=== PATIENT | female | born 1975 | race Caucasian/White ===

== ENCOUNTER 2018-07-24 14:08 | Observation (INO) ==
[2018-07-24 15:09] LABS: Baso # (Auto) 0.1 th/mm3 (0.0-0.2); Baso % (Auto) 1.1 % (0.0-2.0); Eos # (Auto) 0.5 th/mm3 (0.0-0.4); Eos % (Auto) 6.5 % (0.0-4.0); Hemoglobin 14.2 gm/dL (11.6-15.3); Lymph # (Auto) 2.4 th/mm3 (1.0-4.8); Lymph % (Auto) 29.5 % (9.0-44.0); Mean Corpuscular HGB Conc 32.9 % (32.0-36.0); Mean Corpuscular Hemoglobin 29.3 pg (27.0-34.0); Mean Corpuscular Volume 88.8 fL (80.0-100.0); Mean Platelet Volume 8.3 fL (7.0-11.0); Mono # (Auto) 0.5 th/mm3 (0.0-0.9); Mono % (Auto) 5.9 % (0.0-8.0); Neut # (Auto) 4.7 th/mm3 (1.8-7.7); Platelet Count 299 th/mm3 (150-450); Red Blood Count 4.84 mil/mm3 (4.00-5.30); Red Cell Distribution Width 13.1 % (11.6-17.2); White Blood Count 8.3 th/mm3 (4.0-11.0)
[2018-07-24 15:17] LABS: Amphetamine Screen,Urine Neg (Neg); Barbiturate Screen,Urine Neg (Neg); Cannabinoid Screen,Urine Neg (Neg); Cocaine Screen,Urine Neg (Neg)
--- NOTE | 2018-07-24 15:18 | XR ---
EXAM DATE: 07/24/2018 3:07 PM EDT AGE/SEX: 43 years / Female INDICATIONS: Weakness. Possible TIA CLINICAL DATA: This is the patient's initial encounter. Patient reports that signs and symptoms have been present for 1 day and indicates a pain score of 0/10. MEDICAL/SURGICAL HISTORY: . TIA, high blood pressure, diabetes None. COMPARISON: No prior exams available for comparison. FINDINGS: A single AP view of the chest demonstrates the lungs to be symmetrically aerated without evidence of mass, infiltrate or effusion. The cardiomediastinal contours are unremarkable. Osseous structures a re intact. CONCLUSION: Negative examination. Electronically signed by: Sanford Dejesus MD 07/24/2018 3:17 PM EDT
[2018-07-24 15:27] LABS: Bacteria,Urine Occasional /hpf; Bilirubin,Urine Negative (Negative); Clarity,Urine Clear (Clear); Color,Urine Straw (Yellw/Straw); Glucose,Urine (UA) 500 or Greater mg/dL (Negative); Leukocyte Esterase,Urine Trace (Negative); Nitrite,Urine Negative (Negative); Specific Gravity,Urine 1.006 (1.002-1.035); Squamous Epithelial Cell,Urine <1 /hpf (0-5)
[2018-07-24 15:29] LABS: Opiate Screen,Urine Neg (Neg)
--- NOTE | 2018-07-24 15:38 | CT ---
EXAM DATE: 07/24/2018 3:33 PM EDT AGE/SEX: 43 years / Female INDICATIONS: Resolved expressive aphasia CLINICAL DATA: This is the patient's initial encounter. Patient reports that signs and symptoms have been present for 1 day and indicates a pain score of 0/10. MEDICAL/SURGICAL HISTORY: Diabetes. Hypertension. None. RADIATION DOSE: 56.35 CTDI (mGy) COMPARISON: No prior exams available for comparison. TECHNIQUE: CT of the head without contrast. Using automated exposure control and adjustment of the mA and/or kV according to patient size, radiation dose was kept as low as reasonably achievable to ob tain optimal diagnostic quality images. DICOM format image data is available electronically for revi ew and comparison. FINDINGS: Cerebrum: The ventricles are normal for age. No evidence of midline shift, mass lesion, hemorrhage or acute infarction. No extraaxial fluid collections are seen. Posterior Fossa: The cerebellum and brainstem are intact. The 4th ventricle is midline. The cerebe llopontine angle is unremarkable. Extracranial: The visualized portion of the orbits is intact. Skull: The calvaria is intact. No evidence of skull fracture. CONCLUSION: Negative CT Head non contrast. . Electronically signed by: Sanford Dejesus MD 07/24/2018 3:36 PM EDT
[2018-07-24 15:39] LABS: Alanine Aminotransferase 24 U/L (10-53); Albumin 3.4 g/dL (3.4-5.0); Anion Gap 9 meq/L (5-15); Aspartate Aminotransferase 14 U/L (15-37); Blood Urea Nitrogen 11 mg/dL (7-18); Calcium 8.8 mg/dL (8.5-10.1); Carbon Dioxide 23.3 meq/L (21.0-32.0); Chloride 108 meq/L (98-107); Glomerular Filtration Rate Greater Than 89 mL/min (>89); Glucose,Random 124 mg/dL (74-106); Potassium 3.8 meq/L (3.5-5.1); Sodium 140 meq/L (136-145)
[2018-07-24] MEDS: Sod Chloride 0.9% Inj 1,000 ML IV.CONT SCH ×2 (15:41→21:18)
[2018-07-24 15:42] LABS: Alkaline Phosphatase 61 U/L (45-117); Total Protein 6.9 g/dL (6.4-8.2)
--- NOTE | 2018-07-24 15:48 | ED ---
HPI General Chief Complaint: Weakness Stated Complaint: Weakness Time Seen by Provider: 07/24/18 14:29 Source: patient Mode of arrival: ambulatory Limitations: no limitations History of Present Illness HPI narrative: 43-year-old female arrives to the ER by EMS. She had lunch with her boss and coworkers today at [employer]. Shortly after leaving she became very confused. She describes it as "foggy". Coworkers observed difficulty speaking which the patient reports lasted less than a minute or so. Evidently she has a history of TIA with similar symptoms. Patient takes aspirin daily. Patient denies any recent illness. She has been in normal state of health up until today. No drugs or alcohol. Patient describes chest heaviness in the ED. Mild without radiation. Symptoms more or less completely resolved in the ED. MD complaint: altered mental status Onset (ago): hour(s) Related Data Home Medications Medication Instructions Recorded Confirmed aspirin [Aspir-81] 81 mg PO DAILY 07/24/18 07/24/18 cyanocobalamin (vitamin B-12) 1,000 mg PO DAILY 07/24/18 07/24/18 [Vitamin B-12] empagliflozin [Jardiance] 10 mg PO QAM 07/24/18 07/24/18 lisinopril 10 mg PO DAILY 07/24/18 07/24/18 metformin 1,000 mg PO DAILY 07/24/18 07/24/18 metformin 1,500 mg PO BID 07/24/18 07/24/18 spironolactone 25 mg PO DAILY 07/24/18 07/24/18 Allergies Allergy/AdvReac Type Severity Reaction Status Date / Time No Known Allergies Allergy Verified 07/24/18 14:53 Review of Systems ROS: all other systems reviewed are negative [facility] Medical History Medical History Anxiety (Acute) Diabetes (Acute) FH: cholecystectomy (Acute) HTN (hypertension) (Acute) High cholesterol (Acute) Sleep apnea (Acute) TIA (transient ischemic attack) (Acute) Surgical History Surgical History H/O prior ablation treatment (Acute) Social History Social History Substance History: No History of Abuse Second Hand Smoke Exposure: No Smoking Status: Never smoker How Often Do You Have a Drink Containing Alcohol: 2 to 4 times a month Recent Travel in [facility] within the Last 8 Weeks: No Recent Out of Country Travel within the Last 8 Weeks: No Immunization History Tetanus Immunization: <5 Years Hx Influenza Vaccine This Season: No Exam Narrative Exam Narrative: GENERAL: 43-year-old female pleasant well-nourished well- developed speaking full sentences SKIN: Focused skin assessment warm/dry. HEAD: Atraumatic. Normocephalic. EYES: Pupils equal and round. No scleral icterus. No injection or drainage. ENT: No nasal bleeding or discharge. Mucous membranes pink and moist. NECK: Trachea midline. No JVD. CARDIOVASCULAR: Regular rate and rhythm. No murmur appreciated. RESPIRATORY: No accessory muscle use. Clear to auscultation. Breath sounds equal bilaterally. GASTROINTESTINAL: Abdomen soft, non-tender, nondistended. Hepatic and splenic margins not palpable. MUSCULOSKELETAL: No obvious deformities. No clubbing. No cyanosis. No edema. NEUROLOGICAL: A and O 3. Cranial nerves III through XII are normal. Speech memory mentation normal. Motor function normal times all 4 extremities. PSYCHIATRIC: Appropriate mood and affect; insight and judgment normal. Course Initial Documented Vital Signs Temperature 99 F 07/24/18 14:10 Pulse Rate 84 07/24/18 14:10 Respiratory Rate 18 07/24/18 14:10 Blood Pressure 132/84 07/24/18 14:10 Pulse Oximetry 95 07/24/18 14:10 Last Documented Vital Signs Temperature 99 F 07/24/18 14:10 Pulse Rate 75 07/24/18 14:49 Respiratory Rate 15 07/24/18 14:49 Blood Pressure 166/69 H 07/24/18 14:49 Pulse Oximetry 96 07/24/18 14:49 Medical Decision Making MDM Narrative Medical decision making narrative: Patient arrives with symptoms concerning for TIA. Patient will be admitted for TIA protocol. d/w Dr Kaufman. Medical Screen Exam Complete: Yes Emergency Medical Condition: Yes Lab Data Lab results reviewed: Yes I reviewed the patient's lab results. Lab results narrative: Blood work is grossly unremarkable. Result diagrams: 07/24/18 14:40 07/24/18 14:40 Lab Results 07/24/18 07/24/18 07/24/18 Range/Units 14:22 14:22 14:40 WBC 8.3 (4.0-11.0) th/mm3 RBC 4.84 (4.00-5.30) mil/mm3 Hgb 14.2 (11.6-15.3) gm/dL Hct 43.0 (35.0-46.0) % MCV 88.8 (80.0-100.0) fL MCH 29.3 (27.0-34.0) pg MCHC 32.9 (32.0-36.0) % RDW 13.1 (11.6-17.2) % Plt Count 299 (150-450) th/mm3 MPV 8.3 (7.0-11.0) fL Neut % (Auto) 57.0 (16.0-70.0) % Lymph % (Auto) 29.5 (9.0-44.0) % [place] % (Auto) 5.9 (0.0-8.0) % Eos % (Auto) 6.5 H (0.0-4.0) % Baso % (Auto) 1.1 (0.0-2.0) % Neut # (Auto) 4.7 (1.8-7.7) th/mm3 Lymph # (Auto) 2.4 (1.0-4.8) th/mm3 [place] # (Auto) 0.5 (0.0-0.9) th/mm3 Eos # (Auto) 0.5 H (0.0-0.4) th/mm3 Baso # (Auto) 0.1 (0.0-0.2) th/mm3 WBC Differential . Differential Comment Auto diff final Sodium (136-145) meq/L Potassium (3.5-5.1) meq/L Chloride (98-107) meq/L Carbon Dioxide (21.0-32.0) meq/L Anion Gap (5-15) meq/L BUN (7-18) mg/dL Creatinine (0.50-1.00) mg/dL Estimated GFR (>89) mL/min POC Glucose (68-110) mg/dl Random Glucose (74-106) mg/dL Calcium (8.5-10.1) mg/dL Total Bilirubin (0.2-1.0) mg/dL AST (15-37) U/L ALT (10-53) U/L Alkaline Phosphatase (45-117) U/L Troponin I (0.02-0.05) ng/mL Total Protein (6.4-8.2) g/dL Albumin (3.4-5.0) g/dL Urine Color Straw (Yellw/Straw) Urine Clarity Clear (Clear) Urine pH 5.0 (5.0-8.5) Ur Specific [place] 1.006 (1.002-1.035) Urine Protein Negative (Neg-Trace) mg/dL Urine Glucose (UA) 500 or greater (Negative) mg/dL Urine Ketones Negative (Negative) mg/dL Urine Occult Blood Small H (Negative) Urine Nitrate Negative (Negative) Urine Bilirubin Negative (Negative) Urine Urobilinogen Less than 2 (Less than 2) mg/dL Ur Leukocyte Esterase Trace H (Negative) Urine RBC 1 (0-3) /hpf Urine WBC 3 (0-5) /hpf Ur Squamous Epith Cells <1 (0-5) /hpf Urine Bacteria Occasional H (None) /hpf Micro UA Comment Culture not ind Ur Microscopic Review Not Reportable Urine Culture Comments Culture not ind Urine Opiates Screen Neg (Neg) Ur Barbiturates Screen Neg (Neg) Ur Amphetamines Screen Neg (Neg) U Benzodiazepines Scrn Neg (Neg) Urine Cocaine Screen Neg (Neg) U Cannabinoids Screen Neg (Neg) Serum Alcohol (0-5) mg/dL 07/24/18 07/24/18 Range/Units 14:40 14:48 WBC (4.0-11.0) th/mm3 RBC (4.00-5.30) mil/mm3 Hgb (11.6-15.3) gm/dL Hct (35.0-46.0) % MCV (80.0-100.0) fL MCH (27.0-34.0) pg MCHC (32.0-36.0) % RDW (11.6-17.2) % Plt Count (150-450) th/mm3 MPV (7.0-11.0) fL Neut % (Auto) (16.0-70.0) % Lymph % (Auto) (9.0-44.0) % [place] % (Auto) (0.0-8.0) % Eos % (Auto) (0.0-4.0) % Baso % (Auto) (0.0-2.0) % Neut # (Auto) (1.8-7.7) th/mm3 Lymph # (Auto) (1.0-4.8) th/mm3 [place] # (Auto) (0.0-0.9) th/mm3 Eos # (Auto) (0.0-0.4) th/mm3 Baso # (Auto) (0.0-0.2) th/mm3 WBC Differential Differential Comment Sodium 140 (136-145) meq/L Potassium 3.8 (3.5-5.1) meq/L Chloride 108 H (98-107) meq/L Carbon Dioxide 23.3 (21.0-32.0) meq/L Anion Gap 9 (5-15) meq/L BUN 11 (7-18) mg/dL Creatinine 0.69 (0.50-1.00) mg/dL Estimated GFR Greater than 89 (>89) mL/min POC Glucose 123 H (68-110) mg/dl Random Glucose 124 H (74-106) mg/dL Calcium 8.8 (8.5-10.1) mg/dL Total Bilirubin 0.3 (0.2-1.0) mg/dL AST 14 L (15-37) U/L ALT 24 (10-53) U/L Alkaline Phosphatase 61 (45-117) U/L Troponin I Less than 0.02 L (0.02-0.05) ng/mL Total Protein 6.9 (6.4-8.2) g/dL Albumin 3.4 (3.4-5.0) g/dL Urine Color (Yellw/Straw) Urine Clarity (Clear) Urine pH (5.0-8.5) Ur Specific [place] (1.002-1.035) Urine Protein (Neg-Trace) mg/dL Urine Glucose (UA) (Negative) mg/dL Urine Ketones (Negative) mg/dL Urine Occult Blood (Negative) Urine Nitrate (Negative) Urine Bilirubin (Negative) Urine Urobilinogen (Less than 2) mg/dL Ur Leukocyte Esterase (Negative) Urine RBC (0-3) /hpf Urine WBC (0-5) /hpf Ur Squamous Epith Cells (0-5) /hpf Urine Bacteria (None) /hpf Micro UA Comment Ur Microscopic Review Urine Culture Comments Urine Opiates Screen (Neg) Ur Barbiturates Screen (Neg) Ur Amphetamines Screen (Neg) U Benzodiazepines Scrn (Neg) Urine Cocaine Screen (Neg) U Cannabinoids Screen (Neg) Serum Alcohol Less than 3 (0-5) mg/dL Imaging Data Attestation: I personally reviewed and interpreted this imaging study as follows : Radiologist's impression: Chest X-Ray 07/24/18 14:31 CONCLUSION: Negative examination. Head CT 07/24/18 14:31 CONCLUSION: Negative CT Head non contrast. . Discharge Plan Discharge Disposition Patient Disposition: 30 Still Patient Physicians Team ED Provider: Akash Brewster Primary Care Provider: UNKNOWN, Attending Provider: Ruben Kaufman Other Providers: Bridgett Norman ; Sb Cooley Status ED Status: Admitted Observation Patient
[2018-07-24] MEDS ORDERED: Acetaminophen 325 MG Tablet PO ONE (17:13)
[2018-07-24] MEDS ORDERED: Bisacodyl 10 MG Supp RECTAL PRN (17:53)
--- NOTE | 2018-07-24 18:51 | P.HP ---
History of Present Illness Service: Hospitalist Primary Care Physician: UNKNOWN Chief Complaint: Thinks she had a TIA History of Present Illness: Patient is a 43-year-old female with a past medical history of anxiety , diabetes, hypertension, hyperlipidemia, sleep apnea, and PCOS. She was brought to the emergency room by EMS after experiencing an episode of confusion and "fogginess" while leaving a local restaurant after lunch. She was observed to have difficulty speaking and to be garbling her words. She was also stumbling and bumped up against the wall several times. Reports that the episode lasted about a minute or so after which she was extremely fatigued. No loss of consciousness. No fall or head injury reported. She has not recently been sick or traveled. No history of drug or alcohol abuse. She does report a history of a previous TIA several years ago that was thought to have been provoked by control pills. She was on the control pills to control symptoms of PCOS. After that incident her LUMBER CUTTER changed her to Mirena IUD. She does have a family history that is significant for stroke including her mother. Patient has never seen a salad counter attendant. She does follow with cardiology. At one time she had intermittent dysrhythmias however this resolved when she started wearing a CPAP mask. She has had no cardiac interventions. She takes daily ASA aspirin for anticoagulation; has not had any other anticoagulation. Diabetes is moderately well controlled-her last known A1c was 7.1. She has been dieting and has recently lost over 40 pounds in an effort to improve her health. Denies drug, EtOH use or smoking. Patient is seen lying on stretcher in emergency room. Her is at bedside. Patient tells me that she has no lingering confusion or fogginess. She still is somewhat tired. Feels that her strength has returned to normal. Denies any single-sided weakness or facial droop during incident. No chest pain or shortness of breath. No nausea vomiting or diarrhea. No fever or chills. - Diagnosis (1) TIA (transient ischemic attack) Review of Systems All other systems reviewed negative except as stated in HPI [facility] - History History Provided By: Patient, Significant Other, Medical Record - Medical History Medical History: Medical History (Last Reviewed 07/24/18 @ 18:31 by TAE Jenkins) Anxiety Diabetes FH: cholecystectomy HTN (hypertension) High cholesterol Sleep apnea TIA (transient ischemic attack) - Surgical History Surgical History: Surgical History (Last Reviewed 07/24/18 @ 18:31 by TAE Jenkins) H/O prior ablation treatment - Family History Family History: Family History (Last Updated 07/24/18 @ 18:31 by TAE Jenkins) Mother Stroke - Social History I have reviewed the patient's Social History: Yes - Tobacco History Second Hand Smoke Exposure: No Tobacco Use In Past 30 Days: No Smoking Status: Never smoker - Alcohol History How Often Do You Have a Drink Containing Alcohol: 2 to 4 times a month - Substance Use History Substance History: No History of Abuse - Travel History Recent Travel in the [place] Within the Last 8 Weeks: No Recent Travel Out of the Country Within the Last 8 Weeks: No - Immunization History Tetanus Immunization: <5 Years Hx Influenza Vaccine This Season: No Medications and Allergies Active Medications: Active Medications Al Hydroxide/Mg Hydroxide (Milk Of Magnesia Liq) 30 ml PO Q12H PRN PRN Reason: Mild Constipation Bisacodyl (Dulcolax Supp) 10 mg RECTAL DAILY PRN PRN Reason: SEVERE CONSITIPATION Sodium Chloride (Ns Inj) 1,000 mls @ 125 mls/hr IV.CONT .Q8H ONUR Last Admin: 07/24/18 15:41 Dose: 125 mls/hr Lactulose (Lactulose Liq) 30 ml PO DAILY PRN PRN Reason: SEVERE CONSITIPATION Senna/Docusate Sodium (Fabby-Colace) 1 tab PO BID ONUR Sennosides (Senokot) 17.2 mg PO Q12H PRN PRN Reason: Moderate Constipation Sodium Chloride (Ns Flush) 2 ml IV.FLUSH PRN PRN PRN Reason: FLUSH AFTER USING IV ACCESS Last Admin: 07/24/18 15:42 Dose: 2 ml Allergies Allergy/AdvReac Type Severity Reaction Status Date / Time No Known Allergies Allergy Verified 07/24/18 14:53 Home Medications Medication Instructions Recorded Confirmed Type aspirin [Aspir-81] 81 mg PO DAILY 07/24/18 07/24/18 History cyanocobalamin (vitamin B-12) 1,000 mg PO DAILY 07/24/18 07/24/18 History [Vitamin B-12] empagliflozin [Jardiance] 10 mg PO QAM 07/24/18 07/24/18 History lisinopril 10 mg PO DAILY 07/24/18 07/24/18 History metformin 1,000 mg PO DAILY 07/24/18 07/24/18 History metformin 1,500 mg PO BID 07/24/18 07/24/18 History spironolactone 25 mg PO DAILY 07/24/18 07/24/18 History Exam Vital signs: Vital Signs 07/24/18 14:10 07/24/18 14:31 07/24/18 14:35 Temperature 99 F Pulse Rate 84 Respiratory Rate 18 Blood Pressure 132/84 Pulse Oximetry 95 96 95 07/24/18 14:49 Temperature Pulse Rate 75 Respiratory Rate 15 Blood Pressure 166/69 H Pulse Oximetry 96 Intake & Output 07/23/18 07/24/18 07/24/18 18:59 06:59 18:59 Weight 90.718 kg Narrative: GENERAL: Well-nourished, well-developed adult female in no obvious distress. SKIN: Warm and dry. HEAD: Atraumatic. Normocephalic. CARDIOVASCULAR: Regular rate and rhythm. RESPIRATORY: No accessory muscle use. Clear to auscultation. Breath sounds equal bilaterally. GASTROINTESTINAL: Abdomen soft, non-tender, non-distended. Positive bowel sounds. MUSCULOSKELETAL: Extremities without clubbing, cyanosis, or edema. No obvious deformities. NEUROLOGICAL: Awake and alert. No obvious cranial nerve deficits. Moves all limbs equally. motor grossly within normal limits. Normal speech. PSYCHIATRIC: Appropriate mood and affect; insight and judgment good. Results - Labs CBC & Chem 7: 07/24/18 14:40 07/24/18 14:40 Labs: Laboratory Results - last 24 hr 07/24/18 07/24/18 07/24/18 14:22 14:22 14:40 WBC 8.3 RBC 4.84 Hgb 14.2 Hct 43.0 MCV 88.8 MCH 29.3 MCHC 32.9 RDW 13.1 Plt Count 299 MPV 8.3 Neut % (Auto) 57.0 Lymph % (Auto) 29.5 [place] % (Auto) 5.9 Eos % (Auto) 6.5 H Baso % (Auto) 1.1 Neut # (Auto) 4.7 Lymph # (Auto) 2.4 [place] # (Auto) 0.5 Eos # (Auto) 0.5 H Baso # (Auto) 0.1 WBC Differential . Differential Comment Auto diff final Sodium Potassium Chloride Carbon Dioxide Anion Gap BUN Creatinine Estimated GFR POC Glucose Random Glucose Calcium Total Bilirubin AST ALT Alkaline Phosphatase Troponin I Total Protein Albumin Urine Color Straw Urine Clarity Clear Urine pH 5.0 Ur Specific [place] 1.006 Urine Protein Negative Urine Glucose (UA) 500 or greater Urine Ketones Negative Urine Occult Blood Small H Urine Nitrate Negative Urine Bilirubin Negative Urine Urobilinogen Less than 2 Ur Leukocyte Esterase Trace H Urine RBC 1 Urine WBC 3 Ur Squamous Epith Cells <1 Urine Bacteria Occasional H Micro UA Comment Culture not ind Ur Microscopic Review Not Reportable Urine Culture Comments Culture not ind Urine Opiates Screen Neg Ur Barbiturates Screen Neg Ur Amphetamines Screen Neg U Benzodiazepines Scrn Neg Urine Cocaine Screen Neg U Cannabinoids Screen Neg Serum Alcohol 07/24/18 07/24/18 14:40 14:48 WBC RBC Hgb Hct MCV MCH MCHC RDW Plt Count MPV Neut % (Auto) Lymph % (Auto) [place] % (Auto) Eos % (Auto) Baso % (Auto) Neut # (Auto) Lymph # (Auto) [place] # (Auto) Eos # (Auto) Baso # (Auto) WBC Differential Differential Comment Sodium 140 Potassium 3.8 Chloride 108 H Carbon Dioxide 23.3 Anion Gap 9 BUN 11 Creatinine 0.69 Estimated GFR Greater than 89 POC Glucose 123 H Random Glucose 124 H Calcium 8.8 Total Bilirubin 0.3 AST 14 L ALT 24 Alkaline Phosphatase 61 Troponin I Less than 0.02 L Total Protein 6.9 Albumin 3.4 Urine Color Urine Clarity Urine pH Ur Specific [place] Urine Protein Urine Glucose (UA) Urine Ketones Urine Occult Blood Urine Nitrate Urine Bilirubin Urine Urobilinogen Ur Leukocyte Esterase Urine RBC Urine WBC Ur Squamous Epith Cells Urine Bacteria Micro UA Comment Ur Microscopic Review Urine Culture Comments Urine Opiates Screen Ur Barbiturates Screen Ur Amphetamines Screen U Benzodiazepines Scrn Urine Cocaine Screen U Cannabinoids Screen Serum Alcohol Less than 3 - Imaging Impressions Chest X-Ray 07/24/18 14:31 CONCLUSION: Negative examination. Head CT 07/24/18 14:31 CONCLUSION: Negative CT Head non contrast. . Caprini VTE Risk Assessment Caprini VTE Risk Assessment: Moderate/High Risk (score >= 2) Caprini Risk Assessment Model: Point Value = 1 Point Value = 2 Point Value = 3 Point Value = 5 Age 41-60 Minor surgery BMI > 25 kg/m2 Swollen legs Varicose veins or History of unexplained or recurrent spontaneous Oral contraceptives or hormone replacement Sepsis (< 1 month) Serious lung disease, including pneumonia (< 1 month) Abnormal pulmonary function Acute myocardial infarction Congestive heart failure (< 1 month) History of inflammatory bowel disease Medical patient at bed rest Age 61-74 Arthroscopic surgery Major open surgery (> 45 min) Laparoscopic surgery (> 45 min) Malignancy Confined to bed (> 72 hours) Immobilizing plaster cast Central venous access Age >= 75 History of VTE Family history of VTE Factor V Leiden Prothrombin [id number] Lupus anticoagulant Anticardiolipin antibodies Elevated serum homocysteine Heparin-induced thrombocytopenia Other congenital or acquired thrombophilia Stroke (< 1 month) Elective arthroplasty Hip, pelvis, or leg fracture Acute spinal cord injury (< 1 month) Prophylaxis Regimen: Total Risk Factor Score Risk Level Prophylaxis Regimen 0-1 Low Early ambulation 2 Moderate Order ONE of the following: *Sequential Compression Device (SCD) *Heparin 5000 units SQ BID 3-4 Higher Order ONE of the following medications: *Heparin 5000 units SQ TID *Enoxaparin/Lovenox 40 mg SQ daily (WT < 150 kg, CrCl > 30 mL/min) *Enoxaparin/Lovenox 30 mg SQ daily (WT < 150 kg, CrCl > 10-29 mL/min) *Enoxaparin/Lovenox 30 mg SQ BID (WT < 150 kg, CrCl > 30 mL/min) AND/OR *Sequential Compression Device (SCD) 5 or more Highest Order ONE of the following medications: *Heparin 5000 units SQ TID (Preferred with Epidurals) *Enoxaparin/Lovenox 40 mg SQ daily (WT < 150 kg, CrCl > 30 mL/min) *Enoxaparin/Lovenox 30 mg SQ daily (WT < 150 kg, CrCl > 10-29 mL/min) *Enoxaparin/Lovenox 30 mg SQ BID (WT < 150 kg, CrCl > 30 mL/min) AND *Sequential Compression Device (SCD) Assessment and Plan - Assessment (1) TIA (transient ischemic attack) Code(s): G45.9 - Transient cerebral ischemic attack, unspecified Status: Acute - Plan Patient is a 43-year-old female with a past medical history of anxiety , diabetes, hypertension, hyperlipidemia, sleep apnea, and PCOS. She was brought to the emergency room by EMS after experiencing an episode of confusion and "fogginess" while leaving a local restaurant after lunch. TIA vs ? -Appears to be back at baseline neurologically -Head CT negative 07/24 -Will evaluate carotids and echo -Neurology consult; appreciate assistance -Hematology consult; appreciate assistance Hypertension -Restart home lisinopril Diabetes -Home jardiance not on formulary -We will cover with sliding scale while in hospital PCOS -Continue Spironolactone and Metformin DVT prophylaxis: SCDs Discussed with: Patient, , nurse, Dr. Weaver Discharge planning: likely home
[2018-07-24 19:21] LABS: Chol/HDL Ratio 4.46 Ratio; HDL Cholesterol 31.8 mg/dL (40.0-60.0)
--- NOTE | 2018-07-24 20:44 | MB ---
cc: Bridgett Norman MD DATE: 07/24/2018 CHIEF COMPLAINT: 1. History of TIA. 2. Likely current TIA. 3. Consideration of hypercoagulable workup. HISTORY OF PRESENT ILLNESS: Ms. Jefferson is a 43-year-old lady with a history of obesity, diabetes, hypertension, sleep apnea, arrhythmia and polycystic ovarian syndrome, who presented to the hospital with a sudden onset of loss of balance, slurred speech and abnormal speech. She reported difficulty speaking and gargling of words. She reports that she has a history of a previous TIA where she was hospitalized at [facility] in [place]. She reported at that time, she lost strength and sensation on one side of her body and also had difficulty with speaking. She reports that at point in time, she was diagnosed with an arrhythmia for which she follows with a current financial services auditor. She is uncertain of the type of arrhythmia. She takes a baby aspirin daily. She was told that the stroke may have been provoked by control pills as well and she is no longer on estrogen-containing control pills. She is currently on the Mirena IUD. Head CT in the emergency room was negative. Chest x-ray obtained and was also negative. REVIEW OF SYSTEMS: As above in the HPI, all others negative. PAST MEDICAL HISTORY: 1. Hypertension. 2. Diabetes. 3. TIA. 4. PCOS. 5. Obstructive sleep apnea. 6. Arrhythmia. PAST SURGICAL HISTORY: 1. Cholecystectomy. 2. Uterine ablation. 3. Ovarian cyst removal. 4. Fibroid tumor removal. FAMILY HISTORY: Maternal grandmother with a history of stroke. Mother with a history of stroke and mother also with a history of multiple miscarriages. SOCIAL HISTORY: The patient denies tobacco use. She reports rare ethyl alcohol use. HOME MEDICATIONS: Include: 1. Aspirin. 2. Metformin. 3. Lisinopril. 4. Vitamin B12. 5. Iron. 6. Spironolactone. 7. Jardiance. VITAL SIGNS: Pulse 70, respiratory rate 18, blood pressure 130/67. LABORATORY STUDIES: White blood cell count 8.3, hemoglobin 14.2, platelet count 299,000. Chemistry studies with AST that is low at 14, normal renal function, thyroid studies that are within normal limits. PHYSICAL EXAMINATION: GENERAL: Overweight lady in no distress, resting comfortably in bed. HEENT: Normocephalic, atraumatic. Eyes: PERRLA, EOMI. No scleral icterus. CARDIOVASCULAR: Regular rate and rhythm. No murmurs. RESPIRATORY: Clear to auscultation bilaterally. ABDOMEN: Protuberant but soft, nontender and nondistended. EXTREMITIES: No edema. NEUROLOGIC: Grossly nonfocal. PSYCHIATRIC: Appropriate mood and affect. ASSESSMENT AND PLAN: Suspicious for a transient ischemic attack in a young lady with a prior history of a transient ischemic attack 2 years ago. A number of hematologic disorders including hypercoagulable states can increase the risk of transient ischemic attack and stroke. The patient denies ever having been tested for a hypercoagulable state in the past. She reports that she has never been able to get . In this situation, workup for inherited thrombophilias and hypercoagulable states including antiphospholipid syndrome, protein C deficiency, protein S deficiency, antithrombin III deficiency, factor V Leiden and prothrombin gene mutation is reasonable. Neurology team has been consulted for consideration of further workup including evaluation. The patient also denies any personal history of clot. MD HARRIS Emanuel/coy , 07:48 PM , 07:56 PM [email or web address]
--- NOTE | 2018-07-24 20:49 | US ---
EXAM DATE: 07/24/2018 8:32 PM EDT AGE/SEX: 43 years / Female INDICATIONS: Transient ischemic attack. CLINICAL DATA: This is the patient's initial encounter. Patient reports that signs and symptoms have been present for 1 day and indicates a pain score of 0/10. MEDICAL/SURGICAL HISTORY: Hypertension. Hypercholesterolemia. Anxiety. Diabetes. Sleep apnea. Cholecystectomy. Cardiac ablation. COMPARISON: No prior exams available for comparison. VELOCITY PARAMETERS: ICA/CCA Ratio: Right 0.9 , Left 0.6 ICA: Right 77.7 cm/sec, Left 64.7 cm/sec CCA: Right 87.1 cm/sec, Left 103.2 cm/sec ECA: Right 82.2 cm/sec, Left 83.9 cm/sec Vertebral: Right 47.1 cm/sec antegrade, Left 55.7 cm/sec antegrade FINDINGS: Right Carotid: No significant plaque is visualized.The waveforms are within normal limits. Left Carotid: No significant plaque is visualized. The waveforms are within normal limits. Other: None. CONCLUSION: 1. Right Internal Carotid Artery: No significant plaque or narrowing. 2. Left Internal Carotid Artery: No significant plaque or narrowing. Electronically signed by: Sanford Castellanos MD 07/24/2018 8:47 PM EDT
[2018-07-24] MEDS: Senna/Docusate Sodium 8.6/50 MG Tablet PO SCH (21:20)
[2018-07-24] MEDS: Insulin NovoLOG Aspart Correctional Sugar Inj SQ SCH (21:27)
[2018-07-25] MEDS: Sod Chloride 0.9% Inj 1,000 ML IV.CONT SCH ×4 (04:19→14:05)
[2018-07-25 07:44] VITALS: TEMP 97.8
[2018-07-25] MEDS: Insulin NovoLOG Aspart Correctional Sugar Inj SQ SCH ×2 (08:41→13:15)
[2018-07-25] MEDS: Senna/Docusate Sodium 8.6/50 MG Tablet PO SCH (08:42)
[2018-07-25] MEDS ORDERED: Spironolactone 25 MG Tablet PO SCH (09:00)
[2018-07-25] MEDS ORDERED: Lisinopril 10 MG Tablet PO SCH (09:00)
[2018-07-25 09:40] LABS: Baso # (Auto) 0.1 th/mm3 (0.0-0.2); Baso % (Auto) 1.4 % (0.0-2.0); Eos # (Auto) 0.4 th/mm3 (0.0-0.4); Eos % (Auto) 6.5 % (0.0-4.0); Hematocrit 41.8 % (35.0-46.0); Lymph # (Auto) 2.1 th/mm3 (1.0-4.8); Mean Corpuscular HGB Conc 33.5 % (32.0-36.0); Mean Corpuscular Hemoglobin 29.5 pg (27.0-34.0); Mean Corpuscular Volume 87.9 fL (80.0-100.0); Mean Platelet Volume 8.2 fL (7.0-11.0); Mono # (Auto) 0.3 th/mm3 (0.0-0.9); Mono % (Auto) 4.8 % (0.0-8.0); Neut # (Auto) 3.2 th/mm3 (1.8-7.7); Neut % (Auto) 52.3 % (16.0-70.0); Platelet Count 291 th/mm3 (150-450); Red Blood Count 4.76 mil/mm3 (4.00-5.30); Red Cell Distribution Width 13.9 % (11.6-17.2); White Blood Count 6.1 th/mm3 (4.0-11.0)
[2018-07-25 09:46] LABS: Prothrombin Time 9.9 sec (9.8-11.6)
[2018-07-25 10:08] LABS: Alanine Aminotransferase 25 U/L (10-53); Albumin 3.3 g/dL (3.4-5.0); Anion Gap 9 meq/L (5-15); Aspartate Aminotransferase 16 U/L (15-37); Blood Urea Nitrogen 10 mg/dL (7-18); Calcium 8.3 mg/dL (8.5-10.1); Chloride 112 meq/L (98-107); Glomerular Filtration Rate Greater Than 89 mL/min (>89); Glucose,Random 133 mg/dL (74-106); Magnesium 1.9 mg/dL (1.5-2.5); Potassium 3.9 meq/L (3.5-5.1); Sodium 144 meq/L (136-145)
[2018-07-25 10:11] LABS: Alkaline Phosphatase 54 U/L (45-117); Total Protein 6.7 g/dL (6.4-8.2)
[2018-07-25] MEDS ORDERED: Gadobutrol PF 10 MMOL/10 ML Vial (for RAD) IV.SIG ONE (10:23)
--- NOTE | 2018-07-25 10:44 | MB ---
cc: Sb Romano MD DATE: 07/25/2018 HISTORY OF PRESENT ILLNESS: A 43-year-old left-handed woman with hypertension, noninsulin dependent diabetes, hypercholesterolemia, obstructive sleep apnea. She takes a baby aspirin a day. She had some low heart rates and rapid heart rates in the past. About 2 years ago, she says she had a TIA over at [facility], where for about 45 minutes or so she could not talk or move anything. She could only move her eyes. She was crying at that time. Was diagnosed with possible TIA. She has been on a baby aspirin since. Cardiology thought maybe she ought to put a pacemaker in, but none ever was done. She had a 30-day monitor, evidently negative. Then, yesterday, she was getting out of a restaurant, felt a little imbalanced and her speech was slurred. She talked to her , who said that she could not get her words out properly. Evidently, her left arm fell to her side, though she did not notice any definite left-sided weakness. About an hour later, she developed a headache and had some right gnosticist pain later on in the evening. MEDICATIONS AT HOME: B12, Jardiance, spironolactone, aspirin, metformin, lisinopril. She takes a baby aspirin a day at home. She has an IUD in. She denies taking any hormones. REVIEW OF SYSTEMS: She denied any NH; stent; angioplasty; AFib; Coumadin; CABG stent; renal, hepatic, or pulmonary disease; thyroid disease; lupus; ulcer; cancer; or seizure. No history of blood clots or miscarriages herself. She had been on hormones on the last episode 2 years ago and was told to come off of those. SOCIAL HISTORY: Not a smoker, occasionally has a drink. Lives with her . No drugs. FAMILY HISTORY: Negative for cancer. Negative for seizure. Positive stroke in her mother in her 50s due to plaque in her brain, she tells me. PHYSICAL EXAMINATION: VITAL SIGNS: Afebrile ,52, initially 132/84. NECK: There were no carotid bruits. HEART: She has been in sinus rhythm. Regular rhythm. I did not detect a murmur. GENERAL: She is minimally obese. NEUROLOGIC: Pupils are equal. Visual carter are full. Extraocular movements intact without nystagmus. Face symmetric. Normal sensation. Tongue was midline. There is no drift. She had normal strength in upper and lower extremities bilaterally. DTRs are trace throughout. Toes downgoing bilaterally. Pinprick is intact throughout. She is not ataxic on [id number]. Speech is normal. She is not aphasic. Normal repetition. Neurological exam is normal. DIAGNOSTIC DATA: CBC is normal. Urine drug screen was negative. UA essentially unremarkable. Basic metabolic profile was normal. Glucose 124. LFTs were normal. Total protein, albumin normal. LDL cholesterol 58. TSH is normal. Triglycerides 261. Troponin was negative. CT scan of the brain normal. Carotid ultrasound negative. IMPRESSION: Possible transient ischemic attack. Not so sure about that other spell 2 years ago when she could not move anything, was paralyzed, and could only more eyes. She has had some anxiety, but no depression. At this time, certainly sounds or could have been a transient ischemia attack, however; and we will put her on Plavix and she was already on a baby aspirin. Do an MRI of the brain, MRA iroquois of [place] and neck. I think a loop recorder is indicated if this is a second TIA. We will check hypercoagulable screen on her. DAMIAN could be considered. We will try to get those records from [facility] to see if she had a DAMIAN prior. MD ANNA Bruno/eva , 09:00 AM , 09:08 AM
--- NOTE | 2018-07-25 10:47 | MR ---
EXAM DATE: 07/25/2018 10:27 AM EDT AGE/SEX: 43 years / Female INDICATIONS: Slurred speech. Generalized weakness. CLINICAL DATA: This is the patient's subsequent encounter. Patient reports that signs and symptoms h ave been present for 1 day and indicates a pain score of 0/10. MEDICAL/SURGICAL HISTORY: Hypertension. Diabetes mellitus type II. Cholecystectomy. COMPARISON: No prior exams available for comparison. TECHNIQUE: Multiplanar, multisequence examination of the brain was performed without and with 10 ml G adavist (gadobutrol) contrast as a single exam dose. FINDINGS: Cerebrum: The ventricles are normal for age. No evidence of midline shift, mass lesion, hemorrhage or acute infarction. No extraaxial fluid collections are seen. The pituitary gland and suprasellar cistern are normal in configuration. White Matter: No significant signal abnormalities are seen in the white matter. Posterior Fossa: The cerebellum and brainstem are intact. The 4th ventricle is midline. The cerebel lopontine angle is unremarkable. The cerebellar tonsils are normal in position. Diffusion Imaging: No focal areas of restricted diffusion are seen. No evidence of acute infarction . Extracranial: The visualized portions of the orbits and paranasal sinuses are unremarkable. Post Contrast: No abnormal areas of parenchymal or dural enhancement. No evidence of blood-brain ba rrier breakdown. CONCLUSION: No acute intracranial findings. Electronically signed by: Georges Carlos MD 07/25/2018 10:46 AM EDT
--- NOTE | 2018-07-25 10:51 | MR ---
EXAM DATE: 07/25/2018 10:27 AM EDT AGE/SEX: 43 years / Female INDICATIONS: Slurred speech. Generalized weakness. CLINICAL DATA: This is the patient's subsequent encounter. Patient reports that signs and symptoms h ave been present for 1 day and indicates a pain score of 0/10. MEDICAL/SURGICAL HISTORY: Hypertension. Diabetes mellitus type II. Cholecystectomy. COMPARISON: No prior exams available for comparison. TECHNIQUE: 3D kqmc-vi-exucod MRA was performed. Source images, multiplanar STS MIP, and 3D volum e MIP reconstructions were reviewed. FINDINGS: There is excellent visualization of the major intracranial arteries out to the second-order branch ve ssels. There is no evidence for aneurysm, vessel truncation or stenosis, and no evidence for vascula r malformation. CONCLUSION: Brain MRA within normal limits. Electronically signed by: Georges Carlos MD 07/25/2018 10:50 AM EDT
--- NOTE | 2018-07-25 10:55 | MR ---
EXAM DATE: 07/25/2018 10:46 AM EDT AGE/SEX: 43 years / Female INDICATIONS: . Slurred speech, generalized weakness. CLINICAL DATA: This is the patient's subsequent encounter. Patient reports that signs and symptoms h ave been present for 1 day and indicates a pain score of 0/10. MEDICAL/SURGICAL HISTORY: Hypertension. Diabetes mellitus type II. Cholecystectomy. COMPARISON: No prior exams available for comparison. TECHNIQUE: 10 ml Gadavist (gadobutrol) contrast infused MRA (single exam dose) of the extracranial circulation was performed using a neurovascular coil. Postprocessing was performed, including rotati ng sub-volume maximum intensity projections of each carotid artery, rotating full-volume maximum inte nsity projections of both carotid arteries, sagittal and coronal sliding thin-slab reformations of ea ch carotid artery, and left oblique sliding thin-slab reformation through the aortic arch to include the origin of the arch branch vessels. FINDINGS: Aortic Arch : There is a three-vessel origin of the great vessels from the aorta. No evidence of o stial narrowing. Right Carotid : The common carotid artery is intact. The carotid bulb has a normal configuration wi thout ulceration or narrowing. The internal carotid artery lumen is smooth without stenosis. The ex ternal carotid artery is intact. Left Carotid : The common carotid artery is intact. The carotid bulb has a normal configuration wit hout ulceration or narrowing. The internal carotid artery lumen is smooth without stenosis. The ext ernal carotid artery is intact. Vertebrals : The vertebral arteries have a symmetric diameter. No stenotic lesions are seen. Right vertebral artery origin not well demonstrated on this study. CONCLUSION: Carotid MRA within normal limits. Percent stenosis is calculated using the diameter of the stenotic region over the diameter of the nor mal distal internal carotid artery Electronically signed by: Georges Carlos MD 07/25/2018 10:54 AM EDT
[2018-07-25 12:23] VITALS: BP 125/77; PULSE 69; RESP 18; O2SAT 96
[2018-07-25 13:27] LABS: Free T4 (Free Thyroxine) 1.04 ng/dL (0.76-1.46); Vitamin B12 647 pg/mL (193-986)
[2018-07-25] MEDS ORDERED: Acetaminophen 500 MG Tablet PO PRN (13:27)
--- NOTE | 2018-07-25 14:19 | ECG ---
Date Performed: 07/24/2018 Time Performed: 14:19:08 PTAGE: 43 years EKG: Sinus rhythm MODERATE VOLTAGE CRITERIA FOR LVH, CONSIDER NORMAL VARIANT LATE R-WAVE TRANSITION ABNORMAL ECG NO PREVIOUS TRACING DOCTOR: Samuel Lopez Interpretating Date/Time 07/25/2018 14:19:21
--- NOTE | 2018-07-25 16:14 | P.PN ---
Subjective Interval history: Patient is seen lying in bed. Her is at bedside. Patient reports no further events of confusion or dizziness. No syncope. No headache. No change in vision. No nausea or vomiting. No chest pain or shortness of breath. Physical Exam Vital signs: Vital Signs 07/24/18 16:30 07/24/18 18:00 07/24/18 19:11 Temperature Pulse Rate 68 60 70 Respiratory Rate 21 16 18 Blood Pressure 126/60 121/63 130/67 Pulse Oximetry 96 07/24/18 19:43 07/25/18 00:00 07/25/18 03:38 Temperature 98.6 F 98 F 98.4 F Pulse Rate 58 L 55 L 52 L Respiratory Rate 16 16 17 Blood Pressure 118/75 108/70 106/68 Pulse Oximetry 98 97 97 07/25/18 04:00 07/25/18 06:59 07/25/18 07:42 Temperature 97.8 F Pulse Rate 55 L 53 L 51 L Respiratory Rate 16 Blood Pressure 110/56 L Pulse Oximetry 94 L 07/25/18 12:00 Temperature Pulse Rate 69 Respiratory Rate 18 Blood Pressure 125/77 Pulse Oximetry 96 Intake & Output 07/24/18 07/25/18 07/25/18 18:59 06:59 18:59 Intake Total 2442 / 2442 1999 Balance 2442 / 2442 1999 Weight 90.718 kg 90.718 kg Intake: IV 1999 NS Inj 1,000 ML @ 125 mls/hr IV 1999 .CONT .Q8H [facility] Rx#:[id number] Oral 442 / 442 Other: # Voids 2 Date of Last Bowel Movement 07/24/18 Weight On Admission 90.178 kg Narrative: ENERAL: Well-nourished, well-developed adult female in no obvious distress. SKIN: Warm and dry. HEAD: Atraumatic. Normocephalic. CARDIOVASCULAR: Regular rate and rhythm. RESPIRATORY: No accessory muscle use. Clear to auscultation. Breath sounds equal bilaterally. GASTROINTESTINAL: Abdomen soft, non-tender, non-distended. Positive bowel sounds. MUSCULOSKELETAL: Extremities without clubbing, cyanosis, or edema. No obvious deformities. NEUROLOGICAL: Awake and alert. No obvious cranial nerve deficits. Moves all limbs equally. motor grossly within normal limits. Normal speech. PSYCHIATRIC: Appropriate mood and affect; insight and judgment good. Results - Labs CBC & Chem 7: 07/25/18 09:27 07/25/18 09:27 Laboratory Results - last 24 hr 07/24/18 07/24/18 07/24/18 14:40 14:40 21:21 WBC RBC Hgb Hct MCV MCH MCHC RDW Plt Count MPV Neut % (Auto) Lymph % (Auto) Rhea % (Auto) Eos % (Auto) Baso % (Auto) Neut # (Auto) Lymph # (Auto) Rhea # (Auto) Eos # (Auto) Baso # (Auto) WBC Differential Differential Comment ESR PT INR Sodium Potassium Chloride Carbon Dioxide Anion Gap BUN Creatinine Estimated GFR POC Glucose 164 H Random Glucose Calcium Magnesium Total Bilirubin AST ALT Alkaline Phosphatase C-Reactive Protein Total Protein Total Protein (PEP) Albumin Triglycerides 261 H Cholesterol 142 LDL Cholesterol, Calc 58 HDL Cholesterol 31.8 L Cholesterol/HDL Ratio 4.46 Vitamin B12 TSH 1.430 Free T4 Beta HCG, Quant Rheumatoid Factor Scrn Rheumatoid Factor Titer 07/25/18 07/25/18 07/25/18 07:36 09:27 09:27 WBC 6.1 RBC 4.76 Hgb 14.0 Hct 41.8 MCV 87.9 MCH 29.5 MCHC 33.5 RDW 13.9 Plt Count 291 MPV 8.2 Neut % (Auto) 52.3 Lymph % (Auto) 35.0 Rhea % (Auto) 4.8 Eos % (Auto) 6.5 H Baso % (Auto) 1.4 Neut # (Auto) 3.2 Lymph # (Auto) 2.1 Rhea # (Auto) 0.3 Eos # (Auto) 0.4 Baso # (Auto) 0.1 WBC Differential . Differential Comment Auto diff final ESR PT INR Sodium 144 Potassium 3.9 Chloride 112 H Carbon Dioxide 23.0 Anion Gap 9 BUN 10 Creatinine 0.64 Estimated GFR Greater than 89 POC Glucose 122 H Random Glucose 133 H Calcium 8.3 L Magnesium 1.9 Total Bilirubin 0.5 AST 16 ALT 25 Alkaline Phosphatase 54 C-Reactive Protein Total Protein 6.7 Total Protein (PEP) Albumin 3.3 L Triglycerides Cholesterol LDL Cholesterol, Calc HDL Cholesterol Cholesterol/HDL Ratio Vitamin B12 TSH Free T4 Beta HCG, Quant Rheumatoid Factor Scrn Rheumatoid Factor Titer 07/25/18 07/25/18 07/25/18 09:27 12:12 12:12 WBC RBC Hgb Hct MCV MCH MCHC RDW Plt Count MPV Neut % (Auto) Lymph % (Auto) Rhea % (Auto) Eos % (Auto) Baso % (Auto) Neut # (Auto) Lymph # (Auto) Rhea # (Auto) Eos # (Auto) Baso # (Auto) WBC Differential Differential Comment ESR 1 PT 9.9 INR 1.0 Sodium Potassium Chloride Carbon Dioxide Anion Gap BUN Creatinine Estimated GFR POC Glucose Random Glucose Calcium Magnesium Total Bilirubin AST ALT Alkaline Phosphatase C-Reactive Protein Less than 0.29 Total Protein Total Protein (PEP) 7.1 Albumin Triglycerides Cholesterol LDL Cholesterol, Calc HDL Cholesterol Cholesterol/HDL Ratio Vitamin B12 647 TSH 1.640 Free T4 1.04 Beta HCG, Quant Less than 1 Rheumatoid Factor Scrn Negative Rheumatoid Factor Titer Not Reportable 07/25/18 12:46 WBC RBC Hgb Hct MCV MCH MCHC RDW Plt Count MPV Neut % (Auto) Lymph % (Auto) Rhea % (Auto) Eos % (Auto) Baso % (Auto) Neut # (Auto) Lymph # (Auto) Rhea # (Auto) Eos # (Auto) Baso # (Auto) WBC Differential Differential Comment ESR PT INR Sodium Potassium Chloride Carbon Dioxide Anion Gap BUN Creatinine Estimated GFR POC Glucose 120 H Random Glucose Calcium Magnesium Total Bilirubin AST ALT Alkaline Phosphatase C-Reactive Protein Total Protein Total Protein (PEP) Albumin Triglycerides Cholesterol LDL Cholesterol, Calc HDL Cholesterol Cholesterol/HDL Ratio Vitamin B12 TSH Free T4 Beta HCG, Quant Rheumatoid Factor Scrn Rheumatoid Factor Titer - Imaging Impressions Carotid Doppler Study 07/24/18 00:00 CONCLUSION: 1. Right Internal Carotid Artery: No significant plaque or narrowing. 2. Left Internal Carotid Artery: No significant plaque or narrowing. Neck MRA 07/25/18 00:00 CONCLUSION: Carotid MRA within normal limits. Percent stenosis is calculated using the diameter of the stenotic region over the diameter of the normal distal internal carotid artery Head MRI 07/25/18 08:56 CONCLUSION: No acute intracranial findings. Head MRA 07/25/18 08:56 CONCLUSION: Brain MRA within normal limits. Assessment and Plan - Assessment (1) TIA (transient ischemic attack) Code(s): G45.9 - Transient cerebral ischemic attack, unspecified Status: Acute - Plan Patient is a 43-year-old female with a past medical history of anxiety , diabetes, hypertension, hyperlipidemia, sleep apnea, and PCOS. She was brought to the emergency room by EMS after experiencing an episode of confusion and "fogginess" while leaving a local restaurant after lunch. TIA vs ? -Appears to be back at baseline neurologically -Head CT negative; brain MRI negative; head and neck MRA negative; carotids negative. -Hyper coag workup pending -Neurology consult; appreciate assistance -Hematology consult; appreciate assistance Hypertension -Restart home lisinopril Diabetes -Home jardiance not on formulary -We will cover with sliding scale while in hospital PCOS -Continue Spironolactone and Metformin DVT prophylaxis: SCDs Discussed with: Patient, , nurse, Dr. Vargas Discharge planning: likely home
[2018-07-25] MEDS ORDERED: Temazepam 15 MG Capsule PO PRN (16:37)
--- NOTE | 2018-07-25 17:18 | P.DS ---
<Tricia Philippe W - Last Filed: 07/25/18 17:57> Date of admission: 07/24/18 17:53 Primary care physician: UNKNOWN Attending physician on discharge: Demarcus Virk Anticipated date of discharge: 07/25/18 Brief History from admission: Patient is a 43-year-old female with a past medical history of anxiety , diabetes, hypertension, hyperlipidemia, sleep apnea, and PCOS. She was brought to the emergency room by EMS after experiencing an episode of confusion and "fogginess" while leaving a local restaurant after lunch. She was observed to have difficulty speaking and to be garbling her words. She was also stumbling and bumped up against the wall several times. Reports that the episode lasted about a minute or so after which she was extremely fatigued. No loss of consciousness. No fall or head injury reported. She has not recently been sick or traveled. No history of drug or alcohol abuse. She does report a history of a previous TIA several years ago that was thought to have been provoked by control pills. She was on the control pills to control symptoms of PCOS. After that incident her CLINICAL SUPPORT MANAGER changed her to Mirena IUD. She does have a family history that is significant for stroke including her mother. Patient has never seen a auriculotherapist. She does follow with cardiology. At one time she had intermittent dysrhythmias however this resolved when she started wearing a CPAP mask. She has had no cardiac interventions. She takes daily ASA aspirin for anticoagulation; has not had any other anticoagulation. Diabetes is moderately well controlled-her last known A1c was 7.1. She has been dieting and has recently lost over 40 pounds in an effort to improve her health. Denies drug, EtOH use or smoking. Patient is seen lying on stretcher in emergency room. Her is at bedside. Patient tells me that she has no lingering confusion or fogginess. She still is somewhat tired. Feels that her strength has returned to normal. Denies any single-sided weakness or facial droop during incident. No chest pain or shortness of breath. No nausea vomiting or diarrhea. No fever or chills. DS: Diagnosis - Discharge Diagnosis (1) TIA (transient ischemic attack) Status: Acute DS: Medications - Discharge Medications Prescriptions: clopidogrel [Plavix] 75 mg PO DAILY 30 Days #30 tab DS: Summary Hospital Course: Patient is a 43-year-old female with a past medical history of anxiety , diabetes, hypertension, hyperlipidemia, sleep apnea, and PCOS. She was brought to the emergency room by EMS after experiencing an episode of confusion and "fogginess" while leaving a local restaurant after lunch. TIA -Appears to be back at baseline neurologically -Head CT negative; brain MRI negative; head and neck MRA negative; carotids negative. -Hyper coag workup pending -Neurology consult; appreciate assistance- patient to follow up with Neurology in 1-2 weeks -Hematology consult; appreciate assistance- patient to follow up with Hematology in 1-2 weeks - Cardiology consulted for possible DAMIAN - Dr. Virk discussed the case with Dr. Merritt- patient to follow up with Dr. Merritt outpatient for event monitor Hypertension -Restart home lisinopril Diabetes -Home jardiance not on formulary -We will cover with sliding scale while in hospital PCOS -Continue Spironolactone and Metformin DVT prophylaxis: SCDs - Time Spent with Patient Total time spent providing and/or coordinating discharge services: Greater than 30 minutes - Quality: VTE Deep Vein Thrombosis/Pulmonary Embolism Present on Admission: No Exam Vital signs: Vital Signs 07/24/18 18:00 07/24/18 19:11 07/24/18 19:43 Temperature 98.6 F Pulse Rate 60 70 58 L Respiratory Rate 16 18 16 Blood Pressure 121/63 130/67 118/75 Pulse Oximetry 98 07/25/18 00:00 07/25/18 03:38 07/25/18 04:00 Temperature 98 F 98.4 F Pulse Rate 55 L 52 L 55 L Respiratory Rate 16 17 Blood Pressure 108/70 106/68 Pulse Oximetry 97 97 07/25/18 06:59 07/25/18 07:42 07/25/18 12:00 Temperature 97.8 F Pulse Rate 53 L 51 L 69 Respiratory Rate 16 18 Blood Pressure 110/56 L 125/77 Pulse Oximetry 94 L 96 Intake & Output 07/24/18 07/25/18 07/25/18 18:59 06:59 18:59 Intake Total 2442 / 2442 1999 Balance 2442 / 2442 1999 Weight 90.718 kg 90.718 kg Intake: IV 1999 NS Inj 1,000 ML @ 125 mls/hr IV 1999 .CONT .Q8H ONUR Rx#:[id number] Oral 442 / 442 Other: # Voids 2 Date of Last Bowel Movement 07/24/18 Weight On Admission 90.178 kg Narrative: GENERAL: This is a well-nourished, well-developed patient, in no apparent distress. CARDIOVASCULAR: Regular rate and rhythm RESPIRATORY: Clear to auscultation. Breath sounds equal bilaterally. No wheezes , rales, or rhonchi. GASTROINTESTINAL: Abdomen soft, non-tender, nondistended. Normal active bowel sounds MUSCULOSKELETAL: Extremities without clubbing, cyanosis, or edema. NEURO: Alert & Oriented x4 to person, place, time, situation. Moves all ext x4 Results Procedures completed during hospitalization: None Labs on day of discharge: Labs from last 24 hours 07/25/18 07/25/18 07/25/18 16:50 12:46 12:12 WBC RBC Hgb Hct MCV MCH MCHC RDW Plt Count MPV Neut % (Auto) Lymph % (Auto) Mcduffie % (Auto) Eos % (Auto) Baso % (Auto) Neut # (Auto) Lymph # (Auto) Mcduffie # (Auto) Eos # (Auto) Baso # (Auto) WBC Differential Differential Comment ESR PT INR Lupus Anticoagulant LA PTT Screen dRVVT Screen Protein C Antigen APC Resistance Protein S Activity Antithrombin III Activ Factor V Leiden Mutat Factor V Leiden Interp Factor VIII Activity Pending Sodium Potassium Chloride Carbon Dioxide Anion Gap BUN Creatinine Estimated GFR POC Glucose 126 H 120 H Random Glucose Calcium Magnesium Total Bilirubin AST ALT Alkaline Phosphatase C-Reactive Protein Total Protein Total Protein (PEP) Albumin Albumin (PEP) Albumin/Globulin Ratio Kgwvp-7-Wfokahbcz Melsj-6-Ryzwjljua Beta Globulins Gamma Globulins PEP Pathologist Comment Triglycerides Cholesterol LDL Cholesterol, Calc HDL Cholesterol Cholesterol/HDL Ratio Thiamine Vitamin B12 Methylmalonic Acid Homocysteine Cardiovas TSH Free T4 Beta HCG, Quant Rheumatoid Factor Scrn Rheumatoid Factor Titer JANE Screen Beta-2-GPI IgG Ab Beta-2-GPI IgA Ab Beta-2-GPI IgM Ab Phosphatidylserine IgG Phosphatidylserine IgA Phosphatidylserine IgM Anti-Cardiolipin IgG Ab Anti-Cardiolipin IgM Ab RPR MTHFR Mutation Detect Prothrombin [id number] Mut 07/25/18 07/25/18 07/25/18 12:12 12:12 12:12 WBC RBC Hgb Hct MCV MCH MCHC RDW Plt Count MPV Neut % (Auto) Lymph % (Auto) Mcduffie % (Auto) Eos % (Auto) Baso % (Auto) Neut # (Auto) Lymph # (Auto) Mcduffie # (Auto) Eos # (Auto) Baso # (Auto) WBC Differential Differential Comment ESR PT INR Lupus Anticoagulant Pending LA PTT Screen Pending dRVVT Screen Pending Protein C Antigen Pending APC Resistance Pending Protein S Activity Pending Antithrombin III Activ Pending Factor V Leiden Mutat Pending Factor V Leiden Interp Pending Factor VIII Activity Sodium Potassium Chloride Carbon Dioxide Anion Gap BUN Creatinine Estimated GFR POC Glucose Random Glucose Calcium Magnesium Total Bilirubin AST ALT Alkaline Phosphatase C-Reactive Protein Total Protein Total Protein (PEP) Albumin Albumin (PEP) Albumin/Globulin Ratio Wyeez-4-Rwqhuvukx Crfsh-3-Ehhgeenre Beta Globulins Gamma Globulins PEP Pathologist Comment Triglycerides Cholesterol LDL Cholesterol, Calc HDL Cholesterol Cholesterol/HDL Ratio Thiamine Pending Vitamin B12 Methylmalonic Acid Pending Homocysteine Cardiovas Pending TSH Free T4 Beta HCG, Quant Rheumatoid Factor Scrn Rheumatoid Factor Titer JANE Screen Pending Beta-2-GPI IgG Ab Pending Beta-2-GPI IgA Ab Pending Beta-2-GPI IgM Ab Pending Phosphatidylserine IgG Pending Phosphatidylserine IgA Pending Phosphatidylserine IgM Pending Anti-Cardiolipin IgG Ab Pending Anti-Cardiolipin IgM Ab Pending RPR Pending MTHFR Mutation Detect Pending Prothrombin [id number] Mut Pending 07/25/18 07/25/18 07/25/18 12:12 12:12 09:27 WBC RBC Hgb Hct MCV MCH MCHC RDW Plt Count MPV Neut % (Auto) Lymph % (Auto) Mcduffie % (Auto) Eos % (Auto) Baso % (Auto) Neut # (Auto) Lymph # (Auto) Mcduffie # (Auto) Eos # (Auto) Baso # (Auto) WBC Differential Differential Comment ESR 1 PT 9.9 INR 1.0 Lupus Anticoagulant LA PTT Screen dRVVT Screen Protein C Antigen APC Resistance Protein S Activity Antithrombin III Activ Factor V Leiden Mutat Factor V Leiden Interp Factor VIII Activity Sodium Potassium Chloride Carbon Dioxide Anion Gap BUN Creatinine Estimated GFR POC Glucose Random Glucose Calcium Magnesium Total Bilirubin AST ALT Alkaline Phosphatase C-Reactive Protein Less than 0.29 Total Protein Total Protein (PEP) 7.1 Albumin Albumin (PEP) Pending Albumin/Globulin Ratio Pending Cejpg-9-Szwlhmtur Pending Wgrxe-5-Zqqsxsqew Pending Beta Globulins Pending Gamma Globulins Pending PEP Pathologist Comment Pending Triglycerides Cholesterol LDL Cholesterol, Calc HDL Cholesterol Cholesterol/HDL Ratio Thiamine Vitamin B12 647 Methylmalonic Acid Homocysteine Cardiovas TSH 1.640 Free T4 1.04 Beta HCG, Quant Less than 1 Rheumatoid Factor Scrn Negative Rheumatoid Factor Titer Not Reportable JANE Screen Beta-2-GPI IgG Ab Beta-2-GPI IgA Ab Beta-2-GPI IgM Ab Phosphatidylserine IgG Phosphatidylserine IgA Phosphatidylserine IgM Anti-Cardiolipin IgG Ab Anti-Cardiolipin IgM Ab RPR MTHFR Mutation Detect Prothrombin [id number] Mut 07/25/18 07/25/18 07/25/18 09:27 09:27 07:36 WBC 6.1 RBC 4.76 Hgb 14.0 Hct 41.8 MCV 87.9 MCH 29.5 MCHC 33.5 RDW 13.9 Plt Count 291 MPV 8.2 Neut % (Auto) 52.3 Lymph % (Auto) 35.0 Mcduffie % (Auto) 4.8 Eos % (Auto) 6.5 H Baso % (Auto) 1.4 Neut # (Auto) 3.2 Lymph # (Auto) 2.1 Mcduffie # (Auto) 0.3 Eos # (Auto) 0.4 Baso # (Auto) 0.1 WBC Differential . Differential Comment Auto diff final ESR PT INR Lupus Anticoagulant LA PTT Screen dRVVT Screen Protein C Antigen APC Resistance Protein S Activity Antithrombin III Activ Factor V Leiden Mutat Factor V Leiden Interp Factor VIII Activity Sodium 144 Potassium 3.9 Chloride 112 H Carbon Dioxide 23.0 Anion Gap 9 BUN 10 Creatinine 0.64 Estimated GFR Greater than 89 POC Glucose 122 H Random Glucose 133 H Calcium 8.3 L Magnesium 1.9 Total Bilirubin 0.5 AST 16 ALT 25 Alkaline Phosphatase 54 C-Reactive Protein Total Protein 6.7 Total Protein (PEP) Albumin 3.3 L Albumin (PEP) Albumin/Globulin Ratio Cmddr-9-Jykmkklev Ecahm-5-Zifhcmfym Beta Globulins Gamma Globulins PEP Pathologist Comment Triglycerides Cholesterol LDL Cholesterol, Calc HDL Cholesterol Cholesterol/HDL Ratio Thiamine Vitamin B12 Methylmalonic Acid Homocysteine Cardiovas TSH Free T4 Beta HCG, Quant Rheumatoid Factor Scrn Rheumatoid Factor Titer JANE Screen Beta-2-GPI IgG Ab Beta-2-GPI IgA Ab Beta-2-GPI IgM Ab Phosphatidylserine IgG Phosphatidylserine IgA Phosphatidylserine IgM Anti-Cardiolipin IgG Ab Anti-Cardiolipin IgM Ab RPR MTHFR Mutation Detect Prothrombin [id number] Mut 07/24/18 07/24/18 07/24/18 21:21 14:40 14:40 WBC RBC Hgb Hct MCV MCH MCHC RDW Plt Count MPV Neut % (Auto) Lymph % (Auto) [place]duffie % (Auto) Eos % (Auto) Baso % (Auto) Neut # (Auto) Lymph # (Auto) Mcduffie # (Auto) Eos # (Auto) Baso # (Auto) WBC Differential Differential Comment ESR PT INR Lupus Anticoagulant LA PTT Screen dRVVT Screen Protein C Antigen APC Resistance Protein S Activity Antithrombin III Activ Factor V Leiden Mutat Factor V Leiden Interp Factor VIII Activity Sodium Potassium Chloride Carbon Dioxide Anion Gap BUN Creatinine Estimated GFR POC Glucose 164 H Random Glucose Calcium Magnesium Total Bilirubin AST ALT Alkaline Phosphatase C-Reactive Protein Total Protein Total Protein (PEP) Albumin Albumin (PEP) Albumin/Globulin Ratio Cgztx-6-Birnhlepb Wulyu-9-Djnnzfpaw Beta Globulins Gamma Globulins PEP Pathologist Comment Triglycerides 261 H Cholesterol 142 LDL Cholesterol, Calc 58 HDL Cholesterol 31.8 L Cholesterol/HDL Ratio 4.46 Thiamine Vitamin B12 Methylmalonic Acid Homocysteine Cardiovas TSH 1.430 Free T4 Beta HCG, Quant Rheumatoid Factor Scrn Rheumatoid Factor Titer JANE Screen Beta-2-GPI IgG Ab Beta-2-GPI IgA Ab Beta-2-GPI IgM Ab Phosphatidylserine IgG Phosphatidylserine IgA Phosphatidylserine IgM Anti-Cardiolipin IgG Ab Anti-Cardiolipin IgM Ab RPR MTHFR Mutation Detect Prothrombin [id number] Mut - Impressions ITS Impressions Carotid Doppler Study 07/24/18 00:00 CONCLUSION: 1. Right Internal Carotid Artery: No significant plaque or narrowing. 2. Left Internal Carotid Artery: No significant plaque or narrowing. Chest X-Ray 07/24/18 14:31 CONCLUSION: Negative examination. Head CT 07/24/18 14:31 CONCLUSION: Negative CT Head non contrast. . Neck MRA 07/25/18 00:00 CONCLUSION: Carotid MRA within normal limits. Percent stenosis is calculated using the diameter of the stenotic region over the diameter of the normal distal internal carotid artery Head MRI 07/25/18 08:56 CONCLUSION: No acute intracranial findings. Head MRA 07/25/18 08:56 CONCLUSION: Brain MRA within normal limits. <Demarcus Virk - Last Filed: 08/16/18 16:20> Date of admission: 07/24/18 17:53 Primary care physician: UNKNOWN DS: Summary Hospital Course: Patient examined. Assessment and plan formulated with Tricia Philippe PA-C. I agree with the above. - Time Spent with Patient Total time spent providing and/or coordinating discharge services: Results - Impressions ITS Impressions Carotid Doppler Study 07/24/18 00:00 CONCLUSION: 1. Right Internal Carotid Artery: No significant plaque or narrowing. 2. Left Internal Carotid Artery: No significant plaque or narrowing. Chest X-Ray 07/24/18 14:31 CONCLUSION: Negative examination. Head CT 07/24/18 14:31 CONCLUSION: Negative CT Head non contrast. . Neck MRA 07/25/18 00:00 CONCLUSION: Carotid MRA within normal limits. Percent stenosis is calculated using the diameter of the stenotic region over the diameter of the normal distal internal carotid artery Head MRI 07/25/18 08:56 CONCLUSION: No acute intracranial findings. Head MRA 07/25/18 08:56 CONCLUSION: Brain MRA within normal limits. Discharge Plan - Discharge Order Discharge Orders: Discharge Order (Routine); Ordered 07/25/18 Ordered By: Demarcus Virk - Discharge Details Anticipated Discharge Date: 07/25/18 - Physicians Team Primary Care Provider: UNKNOWN, Attending Provider: Demarcus Virk Other Providers: Bridgett Norman ; Sb Cooley MD
--- NOTE | 2018-07-25 17:19 | ECHRPT ---
Indication: CVA/TIA CONCLUSIONS Normal left ventricular size. Wall thickness is normal. The left ventricular systolic function is low normal with an estimated ejection fraction in the rang e of 55%. Trace mitral valve regurgitation. BP: / HR: Rhythm: Technical Quality: FINDINGS LEFT VENTRICLE Normal left ventricular size. Wall thickness is normal. The left ventricular systolic function is low normal with an estimated ejection fraction in the rang e of 55%. RIGHT VENTRICLE Normal right ventricular size and systolic function. LEFT ATRIUM The left atrial size is normal. RIGHT ATRIUM The right atrial size is normal. ATRIAL SEPTUM Normal atrial septal thickness without atrial level shunting by limited color doppler interrogation. AORTA The aortic root and proximal ascending aorta are normal in size on limited imaging. MITRAL VALVE Trace mitral valve regurgitation. AORTIC VALVE Trileaflet aortic valve. No aortic valve stenosis or regurgitation. TRICUSPID VALVE Structurally normal tricuspid valve. No tricuspid valve stenosis or regurgitation. PULMONARY VALVE The pulmonary valve is not well visualized. VESSELS The inferior vena cava was not well visualized. PERICARDIUM No pericardial effusion. Dung Barone MD (Electronically Signed) Final Date:25 July 2018 17:17
[2018-07-28 15:14] LABS: Anti-Nuclear Antibody Screen Neg (Neg)
[2018-07-28 15:52] LABS: Dil Russell Viper Venom Conf ( ND (NEGATIVE); Dil Russell Viper Venom Time M ND (CORRECTED); Lupus Anticoagulant PTT Screen 33 seconds (< OR = 40)
[2018-07-29 03:50] LABS: Activated Protein C Resistance 4.9 ratio (> OR = 2.1); Homocysteine (Cardiovascular) 5.2 umol/L (<10.4)
[2018-07-29 09:31] LABS: Factor V Leiden Mutation Negative (Negative); Protein C Antigen 93 % (70-150)
[2018-07-29 12:04] LABS: Methylmalonic Acid 0.13 nmol/mL (<=0.40)
== END 2018-07-25 18:12 | disposition home or self-care (01) ==
LOC: NEPE 14:08 → INTOOBSV 17:15 → NEDA 17:15 → NEPHCDU 20:04
PROVIDERS: ADMIT Hospitalist; ATTEND Hospitalist